=== PATIENT | male | born 1975 | race Caucasian/White ===

== ENCOUNTER 2020-10-27 14:31 | Emergency (ER) | payer BC ==
--- NOTE | 2020-10-27 14:46 | EDM.PDOC ---
ED HPI GENERAL MEDICAL PROBLEM - General Chief Complaint: Back Pain or Injury Stated Complaint: POSSIBLE STROKE Time Seen by Provider: 10/27/20 14:33 Source of Information: Reports: Patient History Limitations: Reports: No Limitations - History of Present Illness INITIAL COMMENTS - FREE TEXT/NARRATIVE: Is a 44-year-old male who presented today for leg numbness and right leg tin gling. Patient also had episodes where he was lost control of his bladder urinated on himself. He states the symptoms started 30 minutes prior to arrival. Patient denies any upper extremity numbness weakness no change in vision or speech or mental status. Patient denies any back pain injuries drug or alcohol use. headacahe Pain Score (Numeric/FACES): 10 - Related Data Allergies Allergy/AdvReac Type Severity Reaction Status Date / Time No Known Allergies Allergy Verified 10/27/20 14:49 Home Meds: Home Meds . [No Known Home Meds] 10/27/20 [History] Past Medical History - Past Health History Medical/Surgical History: Denies Medical/Surgical History ED ROS GENERAL - Review of Systems Review Of Systems: See Below Constitutional: Reports: No Symptoms HEENT: Reports: No Symptoms Respiratory: Reports: No Symptoms Cardiovascular: Reports: No Symptoms Endocrine: Reports: No Symptoms GI/Abdominal: Reports: No Symptoms : Reports: No Symptoms Musculoskeletal: Reports: No Symptoms Skin: Reports: No Symptoms Neurological: Reports: Numbness, Tingling, Weakness Psychiatric: Reports: No Symptoms Hematologic/Lymphatic: Reports: No Symptoms Immunologic: Reports: No Symptoms ED EXAM, GENERAL - Physical Exam Exam: See Below Exam Limited By: No Limitations General Appearance: Alert, No Apparent Distress Eye Exam: Bilateral Eye: EOMI, PERRL Ears: Normal External Exam Head: Atraumatic Neck: Normal Inspection, Supple Respiratory/Chest: No Respiratory Distress, Lungs Clear, Normal Breath Sounds Cardiovascular: Normal Peripheral Pulses, Regular Rate, Rhythm GI/Abdominal: Normal Bowel Sounds, Soft, Non-Tender Back Exam: Normal Inspection, Full Range of Motion Extremities: Normal Inspection, Normal Range of Motion, Other (sensation normal and strenght 5/5 upper and lower extremities ) Neurological: Alert, Oriented, CN II-XII Intact, Normal Cognition, Normal Gait Skin Exam: Warm #1 Interpretation EKG Date: 10/27/20 Time: 15:00 Rhythm: NSR Rate (Beats/Min): 72 ST-T: Normal Course - Vital Signs Last Recorded V/S: Last Vital Signs Temp 97.8 F 10/27/20 14:41 Pulse 78 10/27/20 14:41 Resp 18 10/27/20 14:41 BP 160/118 H 10/27/20 14:41 Pulse Ox 98 10/27/20 14:41 - Orders/Labs/Meds Orders: Active Orders 24 hr Category Date Time Status Ang Head [CT] Stat Exams 10/27/20 15:04 Taken CTA Neck W & W/O Contrast [Ang Neck] [CT] Stat Exams 10/27/20 15:04 Taken CORONAVIRUS COVID-19 PCR PHL Stat Lab 10/27/20 15:09 Ordered DRUG SCREEN, URINE [URCHEM] Stat Lab 10/27/20 14:39 Ordered Labs: Laboratory Tests 10/27/20 10/27/20 Range/Units 14:39 14:40 WBC 10.72 (4.0-11.0) K/uL RBC 4.62 (4.50-5.90) M/uL Hgb 15.8 (13.0-17.0) g/dL Hct 45.9 (38.0-50.0) % MCV 99.4 H (80.0-98.0) fL MCH 34.2 H (27.0-32.0) pg MCHC 34.4 (31.0-37.0) g/dL RDW Std Deviation 47.5 (28.0-62.0) fl RDW Coeff of Doron 13 (11.0-15.0) % Plt Count 218 (150-400) K/uL MPV 10.20 (7.40-12.00) fL Neut % (Auto) 73.2 (48.0-80.0) % Lymph % (Auto) 18.4 (16.0-40.0) % [place] % (Auto) 7.1 (0.0-15.0) % Eos % (Auto) 0.6 (0.0-7.0) % Baso % (Auto) 0.7 (0.0-1.5) % Neut # (Auto) 7.9 H (1.4-5.7) K/uL Lymph # (Auto) 2.0 (0.6-2.4) K/uL [place] # (Auto) 0.8 (0.0-0.8) K/uL Eos # (Auto) 0.1 (0.0-0.7) K/uL Baso # (Auto) 0.1 (0.0-0.1) K/uL Nucleated RBC % 0.0 /100WBC Nucleated RBCs # 0 K/uL Sodium 137 (136-148) mmol/L Potassium 3.8 (3.5-5.1) mmol/L Chloride 101 (98-107) mmol/L Carbon Dioxide 25.8 (21.0-32.0) mmol/L BUN 10 (7.0-18.0) mg/dL Creatinine 1.1 (0.8-1.3) mg/dL Est Cr Clr Drug Dosing 89.41 mL/min Estimated GFR (MDRD) > 60.0 ml/min Glucose 129 H (74-106) mg/dL Calcium 9.0 (8.5-10.1) mg/dL Magnesium 1.9 (1.8-2.4) mg/dL Total Bilirubin 0.4 (0.2-1.0) mg/dL AST 29 (15-37) IU/L ALT 58 (14-63) IU/L Alkaline Phosphatase 166 H (46-116) U/L Creatine Kinase 124 (26-308) U/L Total Protein 7.7 (6.4-8.2) g/dL Albumin 4.0 (3.4-5.0) g/dL Globulin 3.7 (2.6-4.0) g/dL Albumin/Globulin Ratio 1.1 (0.9-1.6) Ethyl Alcohol < 3.0 mg/dL Meds: Medications Discontinued Medications Generic Name Dose Route Start Last Admin Trade Name Freq PRN Reason Stop Dose Admin Iopamidol 100 ml 10/27/20 15:23 10/27/20 15:31 Isovue Multipack-370 (76%) IVPUSH 10/27/20 15:24 100 ml ONETIME STA Administration Metoclopramide HCl 10 mg 10/27/20 14:55 10/27/20 15:06 Reglan IVPUSH 10/27/20 14:56 10 mg ONETIME ONE Administration - Re-Assessments/Exams Free Text/Narrative Re-Assessment/Exam: 10/27/20 15:14 By radiology stating patient has a subarachnoid hemorrhage. Patient does not take any AC or aspirin/NSAIDs and does not need any reversal of any anticoagulation. Blood pressure is 158/100. Patient remained stable. We spoke to [facility] and they recommended that we call neurosurgery at [facility] as they will not give ability to handle patient there. Departure - Departure Time of Disposition: 15:32 Disposition: DC/Tfer to Acute Hospital 02 Condition: Good Clinical Impression: SAH (subarachnoid hemorrhage) - Discharge Information *PRESCRIPTION DRUG MONITORING PROGRAM REVIEWED*: Not Applicable *COPY OF PRESCRIPTION DRUG MONITORING REPORT IN PATIENT VITOR: Not Applicable Referrals: PCP,None [Primary Care Provider] - Forms: ED Department Discharge Critical Care Note - Critical Care Note Total Time (mins): 39 Comments: Critical Care Procedure Note Authorized and Performed by: Dr. Shaver Total critical care time: Approximately Due to a high probability of clinically significant, life threatening deterioration, the patient required my highest level of preparedness to intervene emergently and I personally spent this critical care time directly and personally managing the patient. This critical care time included obtaining a history; examining the patient; pulse oximetry; ordering and review of studies; arranging urgent treatment with development of a management plan; evaluation of patient's response to treatment; frequent reassessment; and, discussions with other providers. This critical care time was performed to assess and manage the high probability of imminent, life-threatening deterioration that could result in multi-organ failure. It was exclusive of separately billable procedures and treating other patients and teaching time. Sepsis Event Note (ED) - Focused Exam Vital Signs: Vital Signs Temp Pulse Resp BP Pulse Ox 10/27/20 14:41 97.8 F 78 18 160/118 H 98 - My Orders Last 24 Hours: My Active Orders 10/27/20 14:39 DRUG SCREEN, URINE [URCHEM] Stat 10/27/20 15:04 Ang Head [CT] Stat CTA Neck W & W/O Contrast [Ang Neck] [CT] Stat 10/27/20 15:09 CORONAVIRUS COVID-19 PCR PHL Stat - Assessment/Plan Last 24 Hours: My Active Orders 10/27/20 14:39 DRUG SCREEN, URINE [URCHEM] Stat 10/27/20 15:04 Ang Head [CT] Stat CTA Neck W & W/O Contrast [Ang Neck] [CT] Stat 10/27/20 15:09 CORONAVIRUS COVID-19 PCR PHL Stat Plan: Patient is a 44-year-old male who presents today for lower extremity numbness and also weakness in the left lower extremity started 30 minutes prior to arrival. Patient had no other neurologic complaints. Patient did have about 2 electrodes bladder urinating himself. On exam patient has strength 5 out of 5 lower extremities but has some difficulty standing and ambulating. Patient NIH stroke scale was 2 due to the ataxia and motor of the left leg. Will obtain CT labs and reassess.
[2020-10-27] MEDS ORDERED: Metoclopramide 10 MG/2 ML SDV IVPUSH ONE (14:55)
--- NOTE | 2020-10-27 15:06 | CT ---
Indication: Left-sided weakness, incontinence and headache Technique: Volumetric multidetector CT images of the head were obtained without the administration of low osmolar intravenous contrast. Comparison: None available Findings: There is extensive subarachnoid hemorrhage seen at the skull base cisterns, left sylvian fissure and interhemispheric fissure. There is no mass effect or midline shift. The ventricles and sulci are normal in size and position for age. The brain parenchyma is grossly preserved in attenuation and enriquez-white differentiation. The orbits and their contents are grossly within normal limits. The bony calvarium is grossly intact. The paranasal sinuses are clear. The mastoid air cells are well aerated. Impression: Demonstration of extensive subarachnoid hemorrhage predominantly within the skullbase cisterns, left sylvian fissure and interhemispheric fissure which may suggest rupture of an anterior circulation aneurysm. No evidence of significant midline shift. Findings reported to Dr. Traylor at 3:05 p.m. 10/27/2020 Please note that all CT scans at this facility use dose modulation, iterative reconstruction, and/or weight-based dosing when appropriate to reduce radiation dose to as low as reasonably achievable. Dictated by León Sharp MD @ Oct 27 2020 3:02PM Signed by Dr. León Sharp @ Oct 27 2020 3:05PM
--- NOTE | 2020-10-27 15:17 | CT ---
Indication: Left leg numbness and weakness Technique: Volumetric multidetector CT images of the lumbar spine were obtained without the administration of IV contrast. 3-D reconstructions were performed. Comparison: None available. Findings: The lumbar vertebral body heights are grossly maintained with minimal endplate Schmorl`s defect seen at multiple levels. There is likely mild positional versus spasmodic straightening of the normal lumbar lordosis. There is mild to moderate degenerative disc disease with disc height loss and disc protrusions at multiple levels. There is mild multilevel facet arthropathy. There is no displaced fracture or dislocation. The paraspinous soft tissues are grossly unremarkable. The visualized aorta is nonaneurysmal. Impression: Mild multilevel degenerative changes of the lumbar spine without acute osseous abnormality. Please note that all CT scans at this facility use dose modulation, iterative reconstruction, and/or weight-based dosing when appropriate to reduce radiation dose to as low as reasonably achievable. Dictated by León Sharp MD @ Oct 27 2020 3:05PM Signed by Dr. León Sharp @ Oct 27 2020 3:15PM
[2020-10-27 15:20] LABS: BLOOD UREA NITROGEN,BUN 10 mg/dL (7.0-18.0); CARBON DIOXIDE,CO2 25.8 mmol/L (21.0-32.0); CHLORIDE,CL 101 mmol/L (98-107); GLUCOSE RANDOM 129 mg/dL (74-106); POTASSIUM,K 3.8 mmol/L (3.5-5.1); SODIUM,NA 137 mmol/L (136-148)
[2020-10-27] MEDS ORDERED: Iopamidol 755 MG/ML 500 ML Multipack Bottle IVPUSH STA (15:23)
--- NOTE | 2020-10-27 15:42 | CT ---
CT ANGIOGRAM HEAD AND NECK DATE: 10/27/2020 CLINICAL HISTORY: Patient with subarachnoid hemorrhage. TECHNIQUE: Standard helical CT image acquisition through the head and neck was performed after intravenous contrast bolus enhancement. Multiplanar reconstructed images were performed and interpreted. COMPARISON: CT same day. 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 The origins of the great vessels from the aortic arch are patent. The origin of the right vertebral artery is patent. The origin of the left vertebral artery is patent. The common carotid arteries are patent There is no stenosis at the origin of the right internal carotid artery. There is no stenosis at the origin of the left internal carotid artery. The rest of the cervical segments of the internal carotid arteries are patent up to their intracranial segments. The intracranial segments of the internal carotid arteries are patent. The left vertebral artery is dominant. The cervical segments of the vertebral arteries are patent. The intracranial segments of the vertebral arteries are patent. The middle cerebral arteries are normal without aneurysm or proximal occlusion identified. The anterior cerebral arteries are normal without aneurysm or proximal occlusion identified. The basilar artery is normal without aneurysm or occlusion. The posterior cerebral arteries are normal without aneurysm or proximal occlusion. The visualized lung apices are unremarkable The thyroid gland is unremarkable. The soft tissues of the neck are unremarkable. There are degenerative changes in the cervical spine. IMPRESSION: 1. 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 2. Patent cervical vasculature. Findings were discussed with Dr. Shaver at 3:40 PM. Please note that all CT scans at this facility use dose modulation, iterative reconstruction, and/or weight-based dosing when appropriate to reduce radiation dose to as low as reasonably achievable. Dictated by: Darin Doran MD @ 10/27/2020 15:41:14 (Electronically Signed)
[2020-10-27] MEDS ORDERED: niCARdipine/Normal Saline 40 MG/200 ML BAG IV SCH (15:45)
[2020-10-27] MEDS ORDERED: Ondansetron 4 MG/2 ML SDV ONE (16:26)
[2020-10-27] MEDS ORDERED: Morphine 4 MG/ML Syringe ONE (16:26)
[2020-10-27] MEDS ORDERED: Morphine 4 MG/ML Syringe IVPUSH ONE (16:26)
[2020-10-27] MEDS ORDERED: Ondansetron 4 MG/2 ML SDV IVPUSH ONE (16:26)
[2020-10-27 20:16] VITALS: BP 156/95; PULSE 80
== END 2020-10-27 18:22 ==
LOC: MW.ED 14:31
DX: I60.9 Nontraumatic subarachnoid hemorrhage, unspecified (principal); U07.1 COVID-19
CPT/HCPCS: 36415; 70450; 70496; 70498; 72131; 80053; 80305; 80307; 82550; 83735; 85025; 87635; 93005; 96374; 96375; 99285; J2270; J2405; J2765; Q9967; 99291; U0002